=== PATIENT | male | born 1945 | race Caucasian/White ===

== ENCOUNTER 2019-03-08 09:29 | Day surgery (SDC) | payer MEDICARE, OTHER ==
[~2019-03-08] VITALS: Ht 180.3 cm; Wt 88.3 kg
[~2019-03-08 09:29] MED LIST: ATOR20 PO; ELIQUIS5 MG PO; METO25 PO; METO25ER PO; Omeprazole20 M1 PO; Prinivil10 MG PO; RANI150 PO
--- NOTE | 2019-03-08 10:06 | NUR ---
03/08/19 1006 Michelle Awan 1 MISSED IV IN RFA BY VALERY VALVE 1 GOOD IV IN RAC BY VALERY PT TOW
== END 2019-03-08 12:00 | disposition home or self-care (01) ==
LOC: ORSCSDS 09:29
PROVIDERS: Internal Medicine Gastroenterology
PROC: 0DB58ZX Excision of Esophagus, Via Natural or Artificial Opening Endoscopic, Diagnostic (ICD-10-PCS; principal; 2019-03-08 10:45)
DX: K22.70 Barrett's esophagus without dysplasia (principal); K44.9 Diaphragmatic hernia without obstruction or gangrene; I10 Essential (primary) hypertension; E78.5 Hyperlipidemia, unspecified; I48.91 Unspecified atrial fibrillation; Z79.899 Other long term (current) drug therapy; Z79.01 Long term (current) use of anticoagulants
CPT/HCPCS: 88305; J2704; J7120

== ENCOUNTER → 2019-06-23 | Outpatient (CLI) | payer MEDICARE, OTHER | END | disposition home or self-care (01) | LOC: LAB SHORT 10:25 → PLD 10:25 | DX: C44.529 Squamous cell carcinoma of skin of other part of trunk (principal) | CPT/HCPCS: 88305 ==

== ENCOUNTER → 2019-07-07 | Outpatient (CLI) | payer MEDICARE, OTHER | END | disposition home or self-care (01) | LOC: LAB SHORT 14:10 → PLD 14:10 | DX: C44.529 Squamous cell carcinoma of skin of other part of trunk (principal) | CPT/HCPCS: 88305 ==

== ENCOUNTER 2021-01-06 20:18 | Emergency (ER) | payer MEDICARE, OTHER ==
[~2021-01-06] VITALS: Ht 180.3 cm; Wt 83.9 kg
== END 2021-01-06 23:06 | disposition home or self-care (01) ==
LOC: ER 20:18
DX: S61.211A Laceration without foreign body of left index finger without damage to nail, initial encounter (principal); I48.91 Unspecified atrial fibrillation; Z88.8 Allergy status to other drugs, medicaments and biological substances; Z79.01 Long term (current) use of anticoagulants; Z23 Encounter for immunization; Z79.899 Other long term (current) drug therapy; W26.0XXA Contact with knife, initial encounter
CPT/HCPCS: 12001; 73140; 90471; 90714; 99283-25

== ENCOUNTER → 2021-01-08 | Outpatient (CLI) | payer MEDICARE, OTHER | END | disposition home or self-care (01) | LOC: LAB 10:36 → LAB SHORT 10:36 | DX: D22.5 Melanocytic nevi of trunk (principal) | CPT/HCPCS: 88305 ==

== ENCOUNTER 2021-06-08 10:33 | Day surgery (SDC) | payer MEDICARE, OTHER ==
[~2021-06-08] VITALS: Ht 177.8 cm; Wt 85.0 kg
== END 2021-06-08 13:06 | disposition home or self-care (01) ==
LOC: ORSCSDS 10:33
PROVIDERS: Internal Medicine Gastroenterology
PROC: 0DBM8ZX Excision of Descending Colon, Via Natural or Artificial Opening Endoscopic, Diagnostic (ICD-10-PCS; principal; 2021-06-08 11:45)
DX: Z12.11 Encounter for screening for malignant neoplasm of colon (principal); Z86.010 Personal history of colon polyps; D12.4 Benign neoplasm of descending colon; K57.30 Diverticulosis of large intestine without perforation or abscess without bleeding; K64.8 Other hemorrhoids; E78.5 Hyperlipidemia, unspecified; I48.91 Unspecified atrial fibrillation; K22.70 Barrett's esophagus without dysplasia; Z79.01 Long term (current) use of anticoagulants; Z79.899 Other long term (current) drug therapy
CPT/HCPCS: 88305; J2704; J7120

== ENCOUNTER 2022-10-28 09:12 | Day surgery (SDC) | payer MEDICARE, OTHER ==
[~2022-10-28] VITALS: Ht 180.3 cm; Wt 87.3 kg
== END 2022-10-28 11:19 | disposition home or self-care (01) ==
LOC: ORSCSDS 09:12
PROVIDERS: Internal Medicine Gastroenterology
PROC: 0DB58ZX Excision of Esophagus, Via Natural or Artificial Opening Endoscopic, Diagnostic (ICD-10-PCS; principal; 2022-10-28 10:30)
DX: K22.70 Barrett's esophagus without dysplasia (principal); K64.4 Residual hemorrhoidal skin tags; I48.91 Unspecified atrial fibrillation; Z79.01 Long term (current) use of anticoagulants; Z79.899 Other long term (current) drug therapy
CPT/HCPCS: 88305; J2704; J7120

== ENCOUNTER 2023-04-04 08:26 | Day surgery (SDC) | payer MEDICARE, OTHER ==
[2023-04-04] VITALS (8 sets, daily range): BP systolic 107–172; BP diastolic 54–111
[~2023-04-04] VITALS: Ht 180.3 cm; Wt 81.6 kg
[2023-04-04] MEDS ORDERED: THERA-D2000 UNIT PO (08:52)
[2023-04-04] MEDS ORDERED: FELODIPINE ER5 M2 PO (08:53)
--- NOTE | 2023-04-04 10:10 | NUR ---
PATIENT ARRIVED TO RECOVERY ROOM SITTING UPRIGHT IN RECLINER. R RADIAL TR BAND FULLY INFLATED. SITE C/D/I SOFT/NONTENDER. NO EVIDENCE OF HEMATOMA. PATIENT DENYING ANY CP. VSS ON RA.
--- NOTE | 2023-04-04 10:49 | NUR ---
PATIENT SITTING UPRIGHT IN RECLINER TOLERATING PO INTAKE WELL. R TR BAND FULLY INFALTED. SITE C/D/I SOFT/NONTENDER, NO EVIDENCE OF HEMATOMA. VSS ON RA
--- NOTE | 2023-04-04 11:03 | NUR ---
INITIAL 2 CC OF AIR REMOVED FROM R RADIAL TR BAND. SITE C/D/I SOFT/NONTENDER, NO EVIDENCE OF HEMATOMA. PATIENT DENYING ANY CP. VSS ON RA
--- NOTE | 2023-04-04 11:45 | NUR ---
ALL AIR REMOVED FROM R RADIAL TR BAND. SITE C/D/I SOFT/NONTENDER, NO EVIDENCE OF HEMATOMA. VSS ON RA. PATIENT DENYING ANY PAIN.
--- NOTE | 2023-04-04 12:00 | NUR ---
CLOTH DOT APPLIED TO DEFLATED R RADIAL TR BAND. SITE C/D/I SOFT/NONTENDER, NO EVIDENCE OF HEMATOMA. ARM BOARD APPLIED, DISCHARGE INSTRUCTIONS DISCUSSED WITH PATIENT. ALL QUESTIONS WERE ANSWERED. VSS ON RA. PATIENT DENYING ANY CP.
--- NOTE | 2023-04-04 12:04 | NUR ---
PATIENT DISCHARGED HOME AT THIS TIME. ALL PATIENT BELONGINGS LEFT WITH PATIENT. PATIENT WHEELED TO HOSPITAL ENTRANCE AND PATIENTS SPOUSE ABLE TO PROVIDE TRANSPORTATION HOME. PIV REMOVED WITHOUT DIFFICULTY, CATHETER INTACT.
== END 2023-04-04 15:50 | disposition home or self-care (01) ==
LOC: MHTC 08:26
DX: R07.89 Other chest pain (principal); I48.21 Permanent atrial fibrillation; I10 Essential (primary) hypertension; M17.10 Unilateral primary osteoarthritis, unspecified knee; E78.5 Hyperlipidemia, unspecified; K21.9 Gastro-esophageal reflux disease without esophagitis; Z88.8 Allergy status to other drugs, medicaments and biological substances
CPT/HCPCS: 76937; 93454; 99152; A9270; C1769; C1887; C1894; J1644; J2250; J3010; J7030; J7050; Q9967

== ENCOUNTER 2023-04-14 07:41 | Day surgery (SDC) | payer MEDICARE, OTHER ==
[2023-04-14] VITALS (17 sets, daily range): BP systolic 122–171; BP diastolic 80–118
[~2023-04-14] VITALS: Ht 180.3 cm; Wt 192.0 kg
[~2023-04-14 07:41] MED LIST changes: +FELODIPINE ER5 M2 PO; +THERA-D2000 UNIT PO
--- NOTE | 2023-04-14 14:46 | NUR ---
PT ALERT AND ORIENTED, TALKATIVE. VSS. L CHEST DRESSING CLEAN, NO BLEEDING OR SWELLING NOTED.
--- NOTE | 2023-04-14 16:13 | NUR ---
PT AND SPOUSE VERBALIZE D/C INSTRUCTIONS. IV D/C, CATHETER INTACT. PT GETS DRESSED, STEADY ON FEET. SLING ON L ARM, DRESSING CLEAN. PT OUT TO CARE IN W/C, SPOUSE DRIVING PT HOME. HARRIET CALLED INTO PHARMACY.
== END 2023-04-14 16:20 | disposition home or self-care (01) ==
LOC: MHTC 07:41
DX: I49.5 Sick sinus syndrome (principal); I48.21 Permanent atrial fibrillation; I25.118 Atherosclerotic heart disease of native coronary artery with other forms of angina pectoris; I10 Essential (primary) hypertension; I47.29 Other ventricular tachycardia; E78.5 Hyperlipidemia, unspecified
CPT/HCPCS: 33207; 71045; 76937; 99152; 99153; C1781; C1786; C1894; C1898; J0690; J1644; J2250; J3010; J7030; J7040

== ENCOUNTER 2025-02-21 15:54 | Observation (INO) | payer OTHER ==
[2025-02-21] VITALS (7 sets, daily range): BP systolic 86–108; BP diastolic 54–96
[~2025-02-21] VITALS: Ht 180.3 cm; Wt 86.8 kg
[2025-02-21 16:48] LABS: BASOPHILS ABSOLUTE AUTO 0.06 K/mm3 (0.00-0.23); BASOPHILS PERCENT AUTO 0 % (0-2); EOSINOPHILS ABSOLUTE AUTO 0.16 K/mm3 (0.00-0.68); EOSINOPHILS PERCENT AUTO 1 % (0-6); Hematocrit 37.9 % (37.0-53.0); Hemoglobin 13.0 g/dL (13.5-17.5); IMMATURE GRAN ABSOLUTE AUTO 0.05 K/mm3 (0.00-0.10); IMMATURE GRAN PERCENT AUTO 0 % (0-1); LYMPHOCYTES ABSOLUTE AUTO 2.26 K/mm3 (0.84-5.20); LYMPHOCYTES PERCENT AUTO 15 % (21-46); MONOCYTES ABSOLUTE AUTO 1.24 K/mm3 (0.16-1.47); MONOCYTES PERCENT AUTO 8 % (4-13); Mean Corpuscular HGB Conc 34.3 g/dL (31.5-36.5); Mean Corpuscular Volume 92 fL (80-100); NEUTROPHILS ABSOLUTE AUTO 11.25 K/mm3 (1.96-9.15); NEUTROPHILS PERCENT AUTO 75 % (41-73); NRBC ABSOLUTE 0.00 K/mm3 (0.00-0.02); NRBC Auto 0.0 /100 WBC (0.0-0.2); Platelet Count 218 K/mm3 (150-400); RDW Coefficient Variation 13.2 % (11.7-14.2); RDW Standard Deviation 44.6 fL (35.1-46.3)
[2025-02-21] MEDS ORDERED: HYDROmorphone HCl/Pf 1MG SYR IV ONE (16:50)
[2025-02-21 17:17] LABS: Prothrombin Time Results 11.3 Sec (9.7-11.5)
[2025-02-21 17:41] LABS: Alanine Aminotransfer (ALT/SGP 27.0 U/L (12-78); Albumin, Blood 3.9 g/dL (3.4-5.0); Albumin/Globulin Ratio 1.3 (0.8-1.8); Anion Gap 10.0 mmol/L (3-11); Aspartate Aminotrans (AST/SGOT 24.0 U/L (12-37); Bilirubin, Total 0.7 mg/dL (0.1-1.0); Blood Urea Nitrogen 18.0 mg/dL (8-24); CO2, Blood 22.0 mmol/L (21-32); Calcium, Blood 9.0 mg/dL (8.5-10.1); Chloride, Blood 107.0 mmol/L (98-108); Creatinine, Blood 0.84 mg/dL (0.60-1.20); Globulin, Blood 3.1 g/dL (2.2-4.0); Glucose, Blood 138.0 mg/dL (70-99); Potassium, Blood 4.1 mmol/L (3.5-5.5); Sodium, Blood 135.0 mmol/L (136-145); Total Protein, Blood 7.0 g/dL (6.4-8.2)
[2025-02-21] MEDS ORDERED: Human Prothrombin Complx(Pcc) 2,000 UNIT in Water For Injection,Sterile 80 ML IV ONE (18:20)
[2025-02-21] MEDS ORDERED: Ondansetron HCl 2 MG / ML 2ML Vial IV ONE (18:45)
[2025-02-21] MEDS ORDERED: Morphine Sulfate 4 MG/1 ML Injection IV ONE (18:45)
[2025-02-21] MEDS ORDERED: Metoclopramide HCl 5MG / ML 2ML Vial IV ONE (19:10)
[2025-02-21] MEDS ORDERED: Heparin Sodium 1000 Units/ML 10ML MDV ONE (19:29)
[2025-02-21] MEDS ORDERED: NS 1,000 ML IV ONE ×2 (19:29→19:53)
[2025-02-21] MEDS ORDERED: Midazolam HCl 1MG / ML 2ML Vial ONE (19:53)
[2025-02-21] MEDS ORDERED: FentaNYL Citrate 50 MCG/ML 2 ML Injection ONE (19:53)
[2025-02-21] MEDS ORDERED: NS 1,000 ML IV SCH (20:15)
[2025-02-21] MEDS ORDERED: Metoprolol Tartrate 1 MG/ML 5 ML VIAL IV PRN (20:15)
[2025-02-21] MEDS ORDERED: Ondansetron HCl 2 MG / ML 2ML Vial IV PRN (20:20)
--- NOTE | 2025-02-21 21:30 | NUR ---
ASSUMPTION OF CARE: ASSUMED CARE OF PT UPON PTS TRANSFER FROM HR PAYROLL COORDINATOR TO ICU 11. PT IS POST STENT PLACEMENT TO RLE. PT HAS SHEATH THAT REMAINS IN L GROIN, SITE IS C/D/I W/ NO BLEEDING OR HEMATOMA NOTED. PT IS DROWSY UPON ARRIVAL, RESPONDS TO VERBAL STIMULI, AND ORIENTED X4. PT HOLDS APPROPRIATE CONVERSATIONS W/STAFF AND ABLE TO MAKE NEEDS KNOWN. PUPILS ARE EQUAL. PT FOLLOWS COMMANDS. AFEBRILE. LUNGS SOUNDS CLEAR, PT ON RA. SATS >90%. BREATHING EVEN AND UNLABORED. DENIES SOB OR CHEST PAIN. PT HAS PACEMAKER TO LEFT CHEST, PLACED APPROX 1.5YRS AGO. PT HAS HX OF AFIB, CURRENTLY IN AFIB. HR 60-70S. SBP STABLE. MAP>65. ABD SOFT, BT X4 HYPOACTIVE. NO C/O. RN TO CONTINUE TO MONITOR.
[2025-02-21] MEDS ORDERED: Ranitidine HCl150 M1 PO (21:43)
[2025-02-21 22:25] LABS: Hematocrit 31.5 % (37.0-53.0); Hemoglobin 10.8 g/dL (13.5-17.5)
--- NOTE | 2025-02-21 22:37 | NUR ---
PT UPDATE: SHEATH REMOVED FROM L GROIN. PT TOLERATED WELL. NO HEMATOMA, REDNESS, SWELLING, OR ACTIVE BLEEDING NOTED. REMOVAL PROTOCOL FOLLOWED. INCISION SITE COVERED W/ 4X4S AND CHG DRESSING.
[2025-02-22] VITALS (38 sets, daily range): BP systolic 83–127; BP diastolic 52–95
[2025-02-22 02:20] LABS: Hematocrit 34.7 % (37.0-53.0); Hemoglobin 11.7 g/dL (13.5-17.5); Mean Corpuscular HGB Conc 33.7 g/dL (31.5-36.5); Mean Corpuscular Volume 93 fL (80-100); NRBC ABSOLUTE 0.00 K/mm3 (0.00-0.02); NRBC Auto 0.0 /100 WBC (0.0-0.2); Platelet Count 202 K/mm3 (150-400); RDW Coefficient Variation 13.1 % (11.7-14.2); RDW Standard Deviation 44.9 fL (35.1-46.3)
[2025-02-22 02:36] LABS: Anion Gap 5.0 mmol/L (3-11); Blood Urea Nitrogen 15.0 mg/dL (8-24); CO2, Blood 28.0 mmol/L (21-32); Calcium, Blood 8.5 mg/dL (8.5-10.1); Chloride, Blood 108.0 mmol/L (98-108); Creatinine, Blood 0.85 mg/dL (0.60-1.20); Glucose, Blood 137.0 mg/dL (70-99); Potassium, Blood 4.7 mmol/L (3.5-5.5); Sodium, Blood 136.0 mmol/L (136-145)
--- NOTE | 2025-02-22 05:54 | NUR ---
SHIFT SUMMARY: PT SLEEPING COMFORTABLY,AROUSES TO VERBAL STIMULI, REMAINS ORIENTED X4. AFEBRILE. SBP SOFT, STABLE. MAP>65. HR 70S-80S. AFIB AND PACED. PT ON RA, SATS >90%. LUNGS CLEAR T/O. DENIES SOB. ABD SOFT, BT HYPOACTIVE X4. PT TOLERATING CLEAR FLUIDS. PT HAD SOME NAUSEA EARLIER THIS SHIFT, GIVEN ZOFRAN PER ORDERS, HAS DENIED NAUSEA SINCE. PT USING URINAL W/MIN TO NO ASSIST. USING CALL LIGHT APPROPRIATELY. PIV ACCESS TO LAC AND LWRIST. INFUSING IS NS AT 100MLS/HR. THIS RN TO REPORT TO ONCOMING RN.
--- NOTE | 2025-02-22 11:08 | NUR ---
Pt. is awake in bed when he welcomes my visit. Spouse is at bedside. Facilitated a life review and listen with interst and empathy. Pt. verbalized gratitude for the injury to have been located where it seems to have been the least damage. With a calming presence rapport is established and matters of ave and belief are considered. Pt. displayed evidence of a positive and hopeful attitude. Prayed with the Pt. BothPt. and spouse verbalized gratitude for the spiritual care visit.
[2025-02-22 12:47] LABS: BASOPHILS ABSOLUTE AUTO 0.07 K/mm3 (0.00-0.23); BASOPHILS PERCENT AUTO 1 % (0-2); EOSINOPHILS ABSOLUTE AUTO 0.15 K/mm3 (0.00-0.68); EOSINOPHILS PERCENT AUTO 1 % (0-6); Hematocrit 30.9 % (37.0-53.0); Hemoglobin 10.7 g/dL (13.5-17.5); IMMATURE GRAN ABSOLUTE AUTO 0.06 K/mm3 (0.00-0.10); IMMATURE GRAN PERCENT AUTO 0 % (0-1); LYMPHOCYTES ABSOLUTE AUTO 1.67 K/mm3 (0.84-5.20); LYMPHOCYTES PERCENT AUTO 11 % (21-46); MONOCYTES ABSOLUTE AUTO 0.97 K/mm3 (0.16-1.47); MONOCYTES PERCENT AUTO 7 % (4-13); Mean Corpuscular HGB Conc 34.6 g/dL (31.5-36.5); Mean Corpuscular Volume 93 fL (80-100); NEUTROPHILS ABSOLUTE AUTO 11.93 K/mm3 (1.96-9.15); NEUTROPHILS PERCENT AUTO 80 % (41-73); NRBC ABSOLUTE 0.00 K/mm3 (0.00-0.02); NRBC Auto 0.0 /100 WBC (0.0-0.2); Platelet Count 193 K/mm3 (150-400); RDW Coefficient Variation 13.2 % (11.7-14.2); RDW Standard Deviation 44.9 fL (35.1-46.3)
== END 2025-02-22 16:30 | disposition home or self-care (01) ==
LOC: ER 15:54 → ICUE 20:31 → PCU 20:31 → ICUE 21:30
PROVIDERS: Internal Medicine; Nurse Practitioner Acute Care; Student in an Organized Health Care Education/Training Program; ADMIT Student in an Organized Health Care Education/Training Program
DX: S70.11XA Contusion of right thigh, initial encounter (principal); W55.12XA Struck by horse, initial encounter; I48.91 Unspecified atrial fibrillation; I10 Essential (primary) hypertension; E78.5 Hyperlipidemia, unspecified; K21.9 Gastro-esophageal reflux disease without esophagitis; Z79.01 Long term (current) use of anticoagulants; Z88.8 Allergy status to other drugs, medicaments and biological substances; M25.551 Pain in right hip; M17.11 Unilateral primary osteoarthritis, right knee; M19.09 Primary osteoarthritis, other specified site; M46.1 Sacroiliitis, not elsewhere classified; N40.0 Benign prostatic hyperplasia without lower urinary tract symptoms; K57.30 Diverticulosis of large intestine without perforation or abscess without bleeding; K40.90 Unilateral inguinal hernia, without obstruction or gangrene, not specified as recurrent; M51.369 Other intervertebral disc degeneration, lumbar region without mention of lumbar back pain or lower extremity pain; M51.379 Other intervertebral disc degeneration, lumbosacral region without mention of lumbar back pain or lower extremity pain; M76.892 Other specified enthesopathies of left lower limb, excluding foot; M47.816 Spondylosis without myelopathy or radiculopathy, lumbar region; M76.891 Other specified enthesopathies of right lower limb, excluding foot; M79.89 Other specified soft tissue disorders; S70.12XA Contusion of left thigh, initial encounter; R60.0 Localized edema
CPT/HCPCS: 36415; 72192; 73700; 73701; 76937; 80048; 80053; 85014; 85018; 85025; 85027; 85610; 85730; 86850; 86900; 86901; 96361; 96374-59; 96375-59; 96376; 97110; 97116; 97161; 97165; 97530; 99152; 99153; 99285-25; A9270; C1769; C1887; C1894; G0378; J1171; J1644; J2250; J2270; J2405; J2765; J3010; J7030; J7168; Q9967

== ENCOUNTER → 2025-02-28 | Outpatient (CLI) | payer OTHER ==
[~2025-02-28] MED LIST changes: +Ranitidine HCl150 M1 PO
[2025-02-28 10:07] LABS: Source, Urine Clean Catch
[2025-02-28 13:31] LABS: Bilirubin, Urine Neg (Neg); Color, Urine Yellow (P-Yellow); Glucose Qualitative, Urine Neg (Neg); Ketones, Urine Neg (Neg); Leukocyte Esterase, Urine Neg (Neg); Protein, Urine Neg (Neg); Specific Gravity, Urine 1.010 (1.003-1.022); Urobilinogen, Urine NORM (Normal)
[2025-02-28 14:06] LABS: White Blood Cells, Urine 0-2 /hpf (0-5)
== END ==
LOC: LAB SHORT 10:06 → LAB 10:06
PROVIDERS: Internal Medicine
DX: N39.41 Urge incontinence (principal)
CPT/HCPCS: 81001